=== PATIENT | female | born 2005 | race Caucasian/White ===

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

== ENCOUNTER 2023-05-18 18:46 | Emergency (ER) | payer MEDICAID, SELFPAY ==
[2023-05-18 18:47] VITALS: BP 150/104; PULSE 100; RESP 18; TEMP 36.6; O2SAT 99; BMI 48.8
--- NOTE | 2023-05-18 19:07 | EX.ED.VIS.UR ---
HPI HPI - URI History of Present Illness Chief Complaint: Ear Problem Informant: patient Onset/Context/Timing Onset: Today Context: Sudden Onset Timing: Continuous and Waxes and wanes Quality: Aching Location: Right ear Worsened by: - (Yawning, laughing) Relieved by: - (Pressure) Associated Symptoms Associated Symptoms: Positive for Headache; Negative for Nasal Congestion, Sinus Pressure, Myalgias, Nausea, Vomiting, Diarrhea, Shortness of Breath, Chest Pain, Nonproductive cough, Hemoptysis or Productive Cough Narrative Narrative: Patient presents with right ear pain and bleeding that began today. Patient states it came on rather suddenly. Patient states she has aching pain in her right ear. Patient states it waxes and wanes. Patient states it is worse with yawning and laughing. Patient states it is better when she applies pressure to the tragus of her right ear. Patient states that while she was at work today she felt something pop in her right ear and then noticed bleeding from the external auditory canal at that time. Patient admits to a mild headache. Patient denies any nasal congestion or sinus pressure. Patient denies any cough. Patient denies any chest pain or shortness of breath. Patient denies any fevers or chills. ROS ROS ED Constitutional Constitutional ED: Denies chills or fever(s) Eyes Eyes: Denies blurry vision or change in vision ENT ENT ED: Reports ear pain right; Denies rhinorrhea or sore throat Cardiovascular Cardiovascular: Denies chest pain or palpitations Respiratory/Chest Respiratory/Chest: Denies cough or dyspnea Gastrointestinal Gastrointestinal: Denies nausea or vomiting Genitourinary Genitourinary ED: Denies dysuria or hematuria Musculoskeletal Musculoskeletal: Denies back pain or neck pain Integumentary Denies abscess or rash Neurologic Neurologic: Denies headache(s) or weakness Allergic/Immunologic Allergic/Immunologic ED: Denies mouth swelling or urticaria PFSH PFSH Medical History Depression Medical History no medical history Home Medications NK 05/18/23 [History Last Taken Unknown] Allergy/AdvReac Type Severity Reaction Status Date / Time No Known Allergies Allergy Verified 05/18/23 18:47 Surgical History no surgical history no surgical history Social History Smoking Status: Never smoker EXAM Physical Exam Const Vital Signs: 05/18/23 18:47 Temperature 97.8 F Temperature Source Temporal Pulse Rate 100 Respiratory Rate 18 Blood Pressure 150/104 H Blood Pressure Mean 119 Pulse Ox 99 Positive well nourished, well developed and obese General Appearance ED: well developed and NAD Nutritional Appearance: obese HEENT Reports moist mucous membranes Eyes PERRL and EOMs intact bilaterally Neck supple and no JVD Neck Narrative: The right external auditory canal is edematous. The right tympanic membrane is clear. There is some dried blood noted at the opening of the external auditory canal and over the inferior portion of the external ear. There is no active bleeding noted. The left tympanic membrane and external auditory canal are clear. Neck is supple. Trachea is midline. No JVD. Neuro oriented x3, CN's II-XII intact bilaterally and no sensory deficits noted Sensorium / Orientation: alert Motor Exam: strength 5/5 throughout Psych mental status grossly normal MDM MDM MDM Narrative Medical decision making narrative: Patient was advised that this is most likely otitis externa. Patient was started on Cortisporin otic suspension. Patient was instructed apply 4 drops 4 times a day for 7 days. Patient was given referral for ENT. Patient was instructed to follow-up in 5 to 7 days. Patient was instructed return if worse in any way. Patient understood and was agreeable with plan. All questions were answered. Discharge Plan Triage Chief Complaint: Ear Problem ED Provider: Conrad Singh Dx/Rx/DC Orders Clinical Impression: Acute otitis externa of right ear Instructions: ED External Ear Infection (Adult) Prescriptions: No Action NK Primary Care Provider: Jania Miller Referrals: Devan Gann MD [Med Staff - Active Staff] - 5-7 Days Jania Miller DO [Primary Care Provider] - 5-7 Days Disposition Disposition: Home, Self Care
[2023-05-18] MEDS: Neomycin/Polymyxin/Dexameth 5ML OPTH.BTL 4 DRP OTIC (19:30)
== END 2023-05-18 19:32 | disposition home or self-care (01) ==
LOC: ED 19:24
PROVIDERS: Emergency Provider Emergency Medicine; PCP Family Medicine; Visit Provider Emergency Medicine
DX: H60.91 Unspecified otitis externa, right ear (principal); R51.9 Headache, unspecified; E66.9 Obesity, unspecified
CPT/HCPCS: 99282

== ENCOUNTER 2023-06-23 18:07 | Emergency (ER) | payer MEDICAID, SELFPAY ==
[2023-06-23 18:09] VITALS: BP 144/91; PULSE 96; RESP 16; TEMP 36.2; O2SAT 100
[2023-06-23 18:13] VITALS: BMI 49.6
--- NOTE | 2023-06-23 18:20 | ED.VIS.FEGU ---
HPI HPI - Female History of Present Illness Chief Complaint: Vag Bleeding Narrative Narrative: Patient presents with vaginal bleeding. She has an implantable control device, she has not had a period in some time and had some vaginal bleeding 2 weeks ago. Now she has some more vaginal bleeding with slight cramping. No fevers or chills. No back pain or tearing sensation. Urinary symptoms. The bleeding subsided today PFSH PFS Medical History Depression Medical History no medical history Home Medications NK 05/18/23 [History Last Taken Unknown] Allergy/AdvReac Type Severity Reaction Status Date / Time No Known Allergies Allergy Verified 06/23/23 18:08 Surgical History no surgical history Social History Smoking Status: Never smoker ROS ROS ED ROS Narrative Past medical history: Reviewed Medications: Reviewed Social history: Noncontributory Review of systems: General: No fever Eyes: No visual changes Cardiovascular: No chest pain Respiratory: No shortness of breath or cough Gastrointestinal: No abdominal pain, nausea vomiting or diarrhea Genitourinary: As in HPI Musculoskeletal: Denies myalgias no difficulty with ambulation Skin: No rash Neurological: No memory loss, confusion or any focal weakness Hematologic: No easy bleeding or easy bruising EXAM Physical Exam Narrative Exam Narrative: Physical exam General: Well nourished, Well developed, No Acute Distress Head: Normocephalic, Atraumatic Eyes: Conjunctiva not pale ENT: Moist mucous membranes Neck: Supple, Nontender, No lymphadenopathy Cardiovascular: Regular rate, Regular rhythm Respiratory: No distress, CTA bilaterally Abdomen: Soft, Nontender, Nondistended : Deferred Back: Nontender, Normal Inspection. Negative for: CVA tenderness Extremities: Nontender, No edema Skin: Normal color, No rash Const Vital Signs: 06/23/23 18:09 Temperature 97.1 F L Temperature Source Temporal Pulse Rate 96 Respiratory Rate 16 Blood Pressure 144/91 H Blood Pressure Mean 108 Pulse Ox 100 Oxygen Delivery Method Room Air MDM MDM MDM Narrative Medical decision making narrative: Patient is not based on hCG. Therefore she cannot be having a miscarriage. She was worried about this. I do not believe it is true since she has an implantable control and it is highly unlikely that she would be . Regardless her vaginal bleeding is likely all hormonal and it stopped today and she feels better. She can follow-up with OB. Otherwise she will be discharged in stable condition. There is no indication for ultrasound or blood work at this time Lab Data Labs: Laboratory Results - last 24 hr 06/23/23 18:25 Urine Test Negative Discharge Plan Triage Chief Complaint: Vag Bleeding ED Provider: Favian Giron Dx/Rx/DC Orders Clinical Impression: Abnormal vaginal bleeding Instructions: Understanding Uterine Bleeding Prescriptions: No Action NK Primary Care Provider: Jania Miller Referrals: Jania Miller DO [Primary Care Provider] - 3-5 Days Disposition Disposition: Home, Self Care
[2023-06-23 18:43] LABS: Internal QC Validated? YES +Cl - CLEAR BKGD; Pregnancy, Urine Negative Negative
== END 2023-06-23 18:55 | disposition home or self-care (01) ==
PROVIDERS: Emergency Provider Emergency Medicine; PCP Family Medicine; Visit Provider Emergency Medicine
DX: N93.9 Abnormal uterine and vaginal bleeding, unspecified (principal); Z97.5 Presence of (intrauterine) contraceptive device
CPT/HCPCS: 81025; 99282